=== PATIENT | male | born 1985 | race Caucasian/White ===

== ENCOUNTER → 2017-03-25 | Outpatient (CLI) | payer BC ==
--- NOTE | 2017-03-25 12:10 | DIAGNOSTIC IMAGING REPORT ---
TESTICULAR ULTRASOUND HISTORY: TESTICULAR PAIN,LT SIDE COMPARISON: None. FINDINGS: Right testis: 5.1 x 3.0 x 2.7 cm. There are no intratesticular masses. Normal color flow. No hydrocele. The epididymis is unremarkable. Left testis: 5.8 x 3.1 x 2.6 cm. There are few punctate calcifications consistent with microliths. There are no intratesticular masses. Normal color flow. No hydrocele. The epididymis is unremarkable. Left-sided varicocele. IMPRESSION: 1. No testicular masses. 2. Left-sided varicocele. Electronically signed by: Wero Roy M.D. 03/25/2017 12:09 PM Dictated Date/Time: 03/25/2017 12:08 PM
== END | disposition home or self-care (01) ==
LOC: C.ULTR 11:02
PROVIDERS: ATTEND Family Medicine
DX: Z00.00 Encounter for general adult medical examination without abnormal findings (principal); N50.89 Other specified disorders of the male genital organs